=== PATIENT | female | born 1985 | race Caucasian/White ===

== ENCOUNTER 2017-10-18 14:47 | Emergency (ER) | payer OTHER ==
[~2017-10-18] VITALS: Ht 172.7 cm; Wt 75.5 kg
[2017-10-18 15:52] LABS: HEMATOCRIT 42.6 % (36.0-46.0); MCH 32.6 PG (29.0-34.0); MCHC 33.6 G/DL (30.0-36.0); MCV 97.3 FL (83-99); MEAN PLAT.VOLUME 9.5 uM^3 (9.5-12.4); PLATELET COUNT 216 K/uL (156-360); RBC DIS.WIDTH-CV 12.3 % (11.8-14.6); RBC DIS.WIDTH-SD 44.3 % (39-53); RED BLOOD COUNT 4.38 M/uL (3.80-5.20); WHITE BLOOD COUNT 8.7 K/uL (4.1-10.2)
[2017-10-18 16:00] LABS: CHLORIDE 109 mEq/L (99-109); POTASSIUM 3.7 mEq/L (3.7-5.4); SODIUM 138 mEq/L (136-147)
[2017-10-18 16:01] LABS: GLUCOSE 112 mg/dL (70-99)
[2017-10-18 16:03] LABS: ANION GAP 7 MEQ/L (2-14)
[2017-10-18 16:05] LABS: GFR ESTIMATE (CALCULATED) > 59 mL/min/
[2017-10-18 16:06] LABS: UREA NITROGEN (BUN) 11 mg/dL (9-23)
[2017-10-18 16:13] LABS: QUANTITATIVE HCG < 4.0 MIU/ML
[2017-10-18 16:56] LABS: ADD MIUA? YES; BILIRUBIN NEGATIVE; BLOOD NEGATIVE; COLOR YELLOW ((YELLOW)); GLUCOSE (STRIP) NEGATIVE; KETONES NEGATIVE; LEUKOCYTES NEGATIVE; NITRITE NEGATIVE; PROTEIN (STRIP) NEGATIVE; UROBILINOGEN 0.2 MG/DL (0.2-1.0)
[2017-10-18 17:12] LABS: BACTERIA NONE SEEN /HPF; EPITHELIAL CELLS RARE /HPF; GRANULAR CASTS 0-5 /LPF; MUCUS TRACE /LPF; RED BLOOD CELLS 0-5 /HPF (0-5); UCUL ADDED? NO; WHITE BLOOD CELLS 0-5 /HPF (0-5)
[2017-10-18 18:07] VITALS: BP 108/67
== END 2017-10-18 18:13 | disposition home or self-care (01) ==
LOC: EME 14:47
PROVIDERS: Nurse Practitioner Family
DX: R42 Dizziness and giddiness (principal); S00.03XA Contusion of scalp, initial encounter; W19.XXXA Unspecified fall, initial encounter; R11.0 Nausea; R55 Syncope and collapse; R51 Headache; R20.2 Paresthesia of skin; F17.200 Nicotine dependence, unspecified, uncomplicated
CPT/HCPCS: 80048; 81003; 84702; 85027; 93005; 99281; 99285